=== PATIENT | female | born 1965 | race Caucasian/White ===

== ENCOUNTER 2018-08-02 10:07 | Outpatient (CLI) | payer BC ==
--- NOTE | 2018-08-02 11:32 | RAD ---
LUMBAR SPINE TWO TO THREE VIEW SERIES: INDICATIONS: Left side numbness. Pruritus. FINDINGS: Trace spondylolisthesis at L4-L5 and at L5-S1 present. There is multilevel endplate degenerative karen nge and facet osteoarthritis. Mild S-shaped curvature of the lumbar spine present. No acute hortencia leona deformity. IMPRESSION: Multilevel degenerative change and S-shaped curvature of the lumbar spine. Should symptoms of radicu lopathy persist, consider MRI of lumbar spine to further evaluate. POS: [facility]
== END 2018-08-02 10:08 | disposition home or self-care (01) ==
LOC: SCSRAD 10:07
PROVIDERS: ATTEND Nurse Practitioner Family
DX: R20.0 Anesthesia of skin (principal); M47.816 Spondylosis without myelopathy or radiculopathy, lumbar region; M43.9 Deforming dorsopathy, unspecified
CPT/HCPCS: 72100

== ENCOUNTER 2018-08-25 14:37 | Outpatient (CLI) | payer BC ==
--- NOTE | 2018-08-26 10:48 | MMO ---
MAMMO Bilat Diag DDI+JT. CLINICAL HISTORY: Patient is 53 years old and is seen for diagnostic exam and palpable abnormality in the right breast. The patient has no family history of breast cancer. The patient has no personal history of cancer. The patient has a history of left Stereotatic Biopsy in September, - benign, left Excisional Biopsy in 1989 - benign and right Stereotatic Biopsy in - benign. VIEWS: The views performed were: bilateral craniocaudal with tomosynthesis; bilateral mediolateral oblique with tomosynthesis; and bilateral mediolateral. FILMS COMPARED: The present examination has been compared to prior imaging studies performed at [facility] on 11/28/2004, 12/03/2004, 06/05/2005, 06/07/2006, 06/10/2007, 06/11/2008, 06/12/2009, 06/27/2010, 07/20/2011, 09/09/2012, 10/18/2014, 01/24/2016 and 04/16/2017, and at [facility] on 08/12/1999. MAMMOGRAM FINDINGS: The breasts are heterogeneously dense, which could obscure a lesion on mammography. Finding 1: There is a stable lobular mass with circumscribed margins and associated biopsy clip seen in the upper-inner region of the right breast. Finding 2: There are stable benign appearing calcifications seen in both breasts. There are no suspicious masses, calcifications or areas of architectural distortion. IMPRESSION: ALL ABOVE FINDINGS ARE BENIGN. A ROUTINE FOLLOW-UP MAMMOGRAM IN 1 YEAR IS RECOMMENDED. THE RESULTS OF THIS EXAM WERE SENT TO THE PATIENT. ACR BI-RADS Category 2 - Benign finding MAMMOGRAPHY NOTE: 1. A negative mammogram report should not delay a biopsy if a dominant of clinically suspicious mass is present. 2. Approximately 10% to 15% of breast cancers are not detected by mammography. 3. Adenosis and dense breasts may obscure an underlying neoplasm.
== END 2018-08-25 14:38 | disposition home or self-care (01) ==
LOC: BICMAMMO 14:37
PROVIDERS: ATTEND Nurse Practitioner Family
DX: N63.10 Unspecified lump in the right breast, unspecified quadrant (principal); R92.8 Other abnormal and inconclusive findings on diagnostic imaging of breast; R92.1 Mammographic calcification found on diagnostic imaging of breast; Z98.890 Other specified postprocedural states; Z91.89 Other specified personal risk factors, not elsewhere classified
CPT/HCPCS: 77066; G0279

== ENCOUNTER 2020-12-11 09:32 | Outpatient (CLI) | payer BC | END 2020-12-11 09:33 | disposition home or self-care (01) | LOC: CTENTCT 09:32 | PROVIDERS: ATTEND Student in an Organized Health Care Education/Training Program | DX: J32.9 Chronic sinusitis, unspecified (principal) | CPT/HCPCS: 70486 ==

== ENCOUNTER 2021-01-07 08:14 | Day surgery (SDC) | payer BC ==
[2021-01-06 10:59] VITALS: BMI 38.9
[2021-01-07] MEDS ORDERED: EPINEPHrine 1 MG/ML AMP ONE (08:31)
[2021-01-07] MEDS ORDERED: Propofol 500 MG/50 ML VIAL ONE (09:34)
[2021-01-07] MEDS ORDERED: Clindamycin/D5W 900 mg/50 ml Premix Bag ONE ×2 (10:27→10:59)
[2021-01-07] MEDS ORDERED: Fentanyl 100 MCG/2 ML VIAL ONE (10:42)
[2021-01-07] MEDS ORDERED: Glycopyrrolate 0.2 MG/ML 5 ML SYRINGE ONE (10:55)
[2021-01-07] MEDS ORDERED: Lidocaine 1% PF 5 ML VIAL ONE (10:55)
[2021-01-07] MEDS ORDERED: Ondansetron PF 4 MG/2 ML Vial ONE (10:55)
[2021-01-07] MEDS ORDERED: Dexamethasone 20 MG/5 ML VIAL ONE (10:55)
[2021-01-07] MEDS ORDERED: Rocuronium Bromide 10 MG/ML (10ML VIAL) ONE (10:55)
== END 2021-01-07 13:15 | disposition home or self-care (01) ==
LOC: SDC 08:14
PROVIDERS: ATTEND Student in an Organized Health Care Education/Training Program
PROC: 0CBV8ZZ Excision of Left Vocal Cord, Via Natural or Artificial Opening Endoscopic (ICD-10-PCS; principal; 2021-01-07)
DX: J38.1 Polyp of vocal cord and larynx (principal); I10 Essential (primary) hypertension; E78.5 Hyperlipidemia, unspecified; I25.10 Atherosclerotic heart disease of native coronary artery without angina pectoris; K21.9 Gastro-esophageal reflux disease without esophagitis; F17.200 Nicotine dependence, unspecified, uncomplicated; J34.2 Deviated nasal septum; J34.3 Hypertrophy of nasal turbinates; J34.89 Other specified disorders of nose and nasal sinuses; Z79.82 Long term (current) use of aspirin; Z79.899 Other long term (current) drug therapy; Z88.0 Allergy status to penicillin; J32.9 Chronic sinusitis, unspecified; J30.9 Allergic rhinitis, unspecified
CPT/HCPCS: 85014; 88305; 93005; 93010; J0171; J1100; J2405; J2704; J3010; J3490